=== PATIENT | male | born 1995 ===

== ENCOUNTER 2020-09-08 16:53 | Emergency (ER) | payer MEDICAID, SELFPAY ==
--- NOTE | 2020-09-08 17:46 | PC.NURSE ---
Patient left ED stating that he was going to go to another hospital where he can be seen quickly due to his stomach pain. Patient walked out without difficulty and in no distress.
== END 2020-09-08 17:30 | disposition left against medical advice (07) ==
LOC: ANHED 17:51
DX: Z53.21 Procedure and treatment not carried out due to patient leaving prior to being seen by health care provider (principal)
CPT/HCPCS: 99199